=== PATIENT | male | born 1965 | race Caucasian/White ===

== ENCOUNTER 2018-06-08 15:39 | Emergency (ER) | payer OTHER ==
[2018-06-08] MEDS ORDERED: STEMI KIT(*) 1 EA ONE (15:51)
[2018-06-08] MEDS ORDERED: NITROGLYCERIN 0.4 MG SUBL SL ONE ×2 (15:55→16:10)
[2018-06-08] MEDS ORDERED: ASPIRIN 81 MG CHEW PO ONE (15:55)
--- NOTE | 2018-06-08 15:57 | EKG ---
FACILITY: [facility] - [place] PATIENT NAME: BENITO REYES : [id number] MR: [id number] V: [id number] EXAM DATE: ORDERING PHYSICIAN: JENNA AUGUSTINE TECHNOLOGIST: ROSARIO Villanueva Reason : CP Blood Pressure : / mmHG Vent. Rate : 087 BPM Atrial Rate : 087 BPM P-R Int : 132 ms QRS Dur : 090 ms QT Int : 366 ms P-R-T Axes : 036 -39 055 degrees QTc Int : 440 ms Normal sinus rhythm Left axis deviation Abnormal ECG No previous ECGs available Confirmed by SHWETA JAIN ([id number]) on 06/09/2018 6:34:29 AM Referred By: Confirmed By:SHWETA JAIN
[2018-06-08 16:05] LABS: PLATELET COUNT, AUTOMATED 307 K/uL (150-450)
--- NOTE | 2018-06-08 16:11 | ER Report ---
History and Physical Time Seen By MD: 15:45 Hx. 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 COMPLAINT: Chest pain HISTORY OF PRESENT ILLNESS: A 52-year-old male comes emergency Department today with a complaint of chest pain since he just finished a round of golf felt heaviness pressure on his chest rating into both arms was sweaty and diaphoretic mild shortness associated breath nausea without vomiting around to emergency department his pressure had sustained in the center part of his chest no history of heart disease lung disease or diabetes patient denies any past medical history and takes no medications no loosening or alleviating factors known REVIEW OF SYSTEMS: Respiratory: No cough, no dyspnea. Cardiovascular: Chest pain or palpitation Gastrointestinal: No vomiting, no abdominal pain. Musculoskeletal: No back pain. Remainder of the 14 system rev: Yes Allergies: Uncoded Allergies: SULFA (Allergy, Severe, 06/08/18) Reviewed Nurses Notes: Yes Old Medical Records Reviewed: Yes Constitutional Vital Sign - Last 24 Hours 06/08/18 15:41 Temp 98.6 Pulse 96 Resp 24 B/P (MAP) 143/117 Pulse Ox 99 O2 Delivery Room Air Physical Exam General Appearance: The patient is alert, has no immediate need for airway protection and no current signs of toxicity. Diaphoretic appears ill Eyes: Pupils equal and round no injection. Respiratory: Chest is non tender, lungs are clear to auscultation. Cardiac: Tachycardic rate at 108[ ] Gastrointestinal: Abdomen is soft and non tender, no masses, bowel sounds normal. Musculoskeletal: Neck: Neck is supple and non tender. Extremities have full range of motion and are non tender. Skin: No rashes or lesions. [ ] DIFFERENTIAL DIAGNOSIS: After history and physical exam differential diagnosis was considered for myocardial infarction and stenting pulmonary emboli aortic dissection anginal equivalent syndrome exertional angina Medical Decision Making Data Points Result Diagram: 06/08/18 1543 06/08/18 1543 Laboratory Hematology Test 06/08/18 15:43 Red Blood Count 5.43 M/uL (4.00-5.60) Mean Corpuscular Volume 89.4 fL (80.0-96.0) Mean Corpuscular Hemoglobin 31.6 pg (26.0-33.0) Mean Corpuscular Hemoglobin Concent 35.4 g/dL (32.0-36.0) Red Cell Distribution Width 12.7 % (11.5-14.5) Mean Platelet Volume 8.1 fL (7.2-11.1) Neutrophils (%) (Auto) 57.3 % (39.4-72.5) Lymphocytes (%) (Auto) 31.0 % (17.6-49.6) Monocytes (%) (Auto) 9.7 % (4.1-12.4) Eosinophils (%) (Auto) 1.0 % (0.4-6.7) Basophils (%) (Auto) 1.0 % (0.3-1.4) Nucleated RBC Relative Count (auto) 0.1 /100WBC Neutrophils # (Auto) 6.8 K/uL (2.0-7.4) Lymphocytes # (Auto) 3.7 K/uL (1.3-3.6) Monocytes # (Auto) 1.1 K/uL (0.3-1.0) Eosinophils # (Auto) 0.1 K/uL (0.0-0.5) Basophils # (Auto) 0.1 K/uL (0.0-0.1) Nucleated RBC Absolute Count (auto) 0.01 K/uL D-Dimer Quantitative (PE/DVT) < 0.27 ug/ml (0-0.50) Sodium Level 142 mmol/L (137-145) Potassium Level 4.1 mmol/L (3.5-5.0) Chloride Level 103 mmol/L (98-107) Carbon Dioxide Level 26 mmol/L (22-30) Blood Urea Nitrogen 21 mg/dl (9-21) Creatinine 1.40 mg/dl (0.66-1.25) Glomerular Filtration Rate Calc 53.0 Random Glucose 105 mg/dl (75-110) Calcium Level 9.6 mg/dl (8.4-10.2) Total Bilirubin 0.4 mg/dl (0.2-1.3) Aspartate Amino Transf (AST/SGOT) 33 U/L (0-35) Alanine Aminotransferase (ALT/SGPT) 53 U/L (0-56) Alkaline Phosphatase 78 U/L (0-126) Troponin I < 0.012 ng/ml Total Protein 7.7 g/dl (6.3-8.2) Albumin 4.6 g/dl (3.5-5.0) Chemistry Test 06/08/18 15:43 White Blood Count 11.8 k/uL (4.5-11.0) Red Blood Count 5.43 M/uL (4.00-5.60) Hemoglobin 17.2 g/dL (14.0-18.0) Hematocrit 48.5 % (42.0-52.0) Mean Corpuscular Volume 89.4 fL (80.0-96.0) Mean Corpuscular Hemoglobin 31.6 pg (26.0-33.0) Mean Corpuscular Hemoglobin Concent 35.4 g/dL (32.0-36.0) Red Cell Distribution Width 12.7 % (11.5-14.5) Platelet Count 307 K/uL (150-450) Mean Platelet Volume 8.1 fL (7.2-11.1) Neutrophils (%) (Auto) 57.3 % (39.4-72.5) Lymphocytes (%) (Auto) 31.0 % (17.6-49.6) Monocytes (%) (Auto) 9.7 % (4.1-12.4) Eosinophils (%) (Auto) 1.0 % (0.4-6.7) Basophils (%) (Auto) 1.0 % (0.3-1.4) Nucleated RBC Relative Count (auto) 0.1 /100WBC Neutrophils # (Auto) 6.8 K/uL (2.0-7.4) Lymphocytes # (Auto) 3.7 K/uL (1.3-3.6) Monocytes # (Auto) 1.1 K/uL (0.3-1.0) Eosinophils # (Auto) 0.1 K/uL (0.0-0.5) Basophils # (Auto) 0.1 K/uL (0.0-0.1) Nucleated RBC Absolute Count (auto) 0.01 K/uL D-Dimer Quantitative (PE/DVT) < 0.27 ug/ml (0-0.50) Glomerular Filtration Rate Calc 53.0 Calcium Level 9.6 mg/dl (8.4-10.2) Total Bilirubin 0.4 mg/dl (0.2-1.3) Aspartate Amino Transf (AST/SGOT) 33 U/L (0-35) Alanine Aminotransferase (ALT/SGPT) 53 U/L (0-56) Alkaline Phosphatase 78 U/L (0-126) Troponin I < 0.012 ng/ml Total Protein 7.7 g/dl (6.3-8.2) Albumin 4.6 g/dl (3.5-5.0) Coagulation Test 06/08/18 15:43 D-Dimer Quantitative (PE/DVT) < 0.27 ug/ml ED Course/Re-evaluation ED Course ED clinical course medical decision making 52-year-old male who presented with chest pressure and diaphoresis initial EKG was negative repeat EKG in [address] elevations in the lateral precordial with reciprocal changes in the inferior leads ACS protocol including heparin and thrombolytics aspirin initiated IV nitroglycerin also initiated consulted with cardiology interventional will be sent by helicopter to a higher level facility for definitive care and Procedure Decision to Disposition Date: Jun 08, 2018 Decision to Disposition Time: 16:33 Depart Departure Latest Vital Signs Vital Signs Date Time Temp Pulse Resp B/P (MAP) Pulse Ox O2 Delivery O2 Flow Rate FiO2 06/08/18 15:41 98.6 96 24 143/117 99 Room Air Impression: Primary Impression: Myocardial infarction Condition: Improved Disposition: XFER TO ACUTE [facility] JENNA AUGUSTINE MD Jun 08, 2018 16:11
[2018-06-08] MEDS ORDERED: ONDANSETRON 4 MG/2 ML VIAL IVP PRN (16:20)
[2018-06-08] MEDS ORDERED: NITROGLYCERIN 0.4 MG SUBL SL PRN (16:20)
[2018-06-08] MEDS ORDERED: fentaNYL CITR 100 MCG/2 ML AMP IVP PRN (16:20)
[2018-06-08] MEDS ORDERED: TENECTEPLASE 50 MG KIT IVP ONE (16:20)
[2018-06-08] MEDS ORDERED: NITROGLYCERN* 50 MG/D5W 250 ML 250 ML IV PRN (16:25)
[2018-06-08] MEDS ORDERED: NITROGLYCERN* 50 MG/D5W 250 ML 250 ML ONE (16:25)
--- NOTE | 2018-06-08 16:29 | EKG ---
FACILITY: [facility] PATIENT NAME: BENITO REYES : [id number] MR: [id number] V: [id number] EXAM DATE: ORDERING PHYSICIAN: JENNA AUGUSTINE TECHNOLOGIST: ROSARIO Villanueva Reason : Blood Pressure : / mmHG Vent. Rate : 096 BPM Atrial Rate : 096 BPM P-R Int : 132 ms QRS Dur : 094 ms QT Int : 348 ms P-R-T Axes : 043 -64 022 degrees QTc Int : 439 ms Normal sinus rhythm Left axis deviation Incomplete right bundle branch block ST elevation, consider anterolateral injury or acute infarct ACUTE [place] Abnormal ECG When compared with ECG of 08-JUN-2018 15:52, Incomplete right bundle branch block is now present Confirmed by SHWETA JAIN ([id number]) on 06/09/2018 6:34:47 AM Referred By: Confirmed By:SHWETA JAIN
[2018-06-08] MEDS ORDERED: fentaNYL CITR 100 MCG/2 ML AMP IVP ONE (16:30)
[2018-06-08] MEDS ORDERED: HEPARIN* SOD/D5W 25000 U/500ML 500 ML IV ONE (16:30)
[2018-06-08] MEDS ORDERED: CLOPIDOGREL BISULFATE 75MG TAB PO ONE (16:30)
--- NOTE | 2018-06-08 16:38 | RADIOLOGY IMAGING REPORT ---
[facility] PATIENT NAME: Wallace Romero : 1965 MR: [id number] V: [id number] EXAM DATE: ORDERING PHYSICIAN: JENNA AUGUSTINE TECHNOLOGIST: Location: [facility] Patient: Wallace Romero : 1965 Visit/Account:[id number] Date of Sevice: 06/08/2018 Examination: CHEST SINGLE AP Comparison: None. History: Severe chest and back pain. Findings: Cardiac and hilar contour size is normal. No consolidation, nodule, or peribronchial inflam mation. No pneumothorax, edema, or effusion. Osseous structures are intact. IMPRESSION: No evidence of acute cardiopulmonary disease. Report Dictated By: Evangelist Vasquez MD at 06/08/2018 4:32 PM Report E-Signed By: Evangelist Vasquez MD at 06/08/2018 4:33 PM WSN:[id number]
[2018-06-08] MEDS ORDERED: TRAM-420 PO (16:57)
[2018-06-08] MEDS ORDERED: TIZA2CAP3 PO (16:57)
[2018-06-08 17:00] VITALS: BP 120/91
--- NOTE | 2018-06-08 17:19 | EKG ---
FACILITY: [facility] PATIENT NAME: BENITO REYES : [id number] MR: [id number] V: [id number] EXAM DATE: ORDERING PHYSICIAN: JENNA AUGUSTINE TECHNOLOGIST: ROSARIO Villanueva Reason : Blood Pressure : / mmHG Vent. Rate : 085 BPM Atrial Rate : 085 BPM P-R Int : 132 ms QRS Dur : 086 ms QT Int : 384 ms P-R-T Axes : 029 -25 040 degrees QTc Int : 456 ms Normal sinus rhythm When compared with ECG of 08-JUN-2018 16:13, Incomplete right bundle branch block is no longer present ST less elevated in Confirmed by SHWETA JAIN ([id number]) on 06/09/2018 6:38:31 AM Referred By: Confirmed By:SHWETA JAIN
[2018-06-08] MEDS ORDERED: MORPHINE 4 MG/ML SDV IVP ONE (18:10)
[2018-06-08] MEDS ORDERED: HEPARIN (PORC) 5000 UN/ML VIAL SC ONE (18:10)
== END 2018-06-08 17:00 | disposition short-term general hospital (02) ==
LOC: ER 15:56
DX: I21.9 Acute myocardial infarction, unspecified (principal)
CPT/HCPCS: 71045; 84484; 85025; 85379; 93005; 96374; 96375; 99285; J1644; J2270; J2405; J3010; J3101; J3490; 82040; 82247; 82310; 82374; 82435; 82565; 82947; 84075; 84132; 84155; 84295; 84450; 84460; 84520

== ENCOUNTER → 2018-06-08 | Outpatient (REF) ==
[~2018-06-08] MED LIST: TIZA2CAP3 PO; TRAM-420 PO
== END ==
LOC: AMB 16:30
PROVIDERS: ATTEND Nurse Practitioner
DX: Z76.89 Persons encountering health services in other specified circumstances (principal)